=== PATIENT | female | born 1965 | race Caucasian/White ===

== ENCOUNTER → 2017-01-07 | Outpatient (CLI) | payer OTHER ==
--- NOTE | 2017-01-07 16:55 | WOMENS IMAGING REPORT ---
EXAM DESCRIPTION: 3D SCREENING MAMMO BILAT COMPLETED DATE/TIME: 01/07/2017 2:10 pm REASON FOR STUDY: ROUTINE SCREENING; Z12.31 Z12.31 ENCNTR SCREEN MAMMOGRAM FOR MALIGNANT NEOPLASM O F IDALIA COMPARISON: 12/11/2014, 12/23/2015 TECHNIQUE: Standard craniocaudal and mediolateral oblique views of each breast recorded using digita l acquisition and breast tomosynthesis. LIMITATIONS: None. FINDINGS: Findings present which are benign by mammographic criteria. No suspicious masses, calcifi cations or architectural distortion. Pertinent benign findings: Stable left parenchymal cysts. Small left breast far upper outer quadrant intramammary lymph nodes. Read with the assistance of CAD. .[facility] - R2 Cenova Version 1.3 .[facility] Imaging - R2 Cenova Version 1.3 .[facility] - R2 Cenova Version 2.4 .[facility] [place] - R2 Cenova Version 2.4 .[facility] - R2 Operating Room Orderly Version 9.2 Benign mammographic findings may include one or more of the following: Smooth masses, popcorn/rim/co arse calcifications, asymmetries, post-procedure changes, and lesions with long-standing stability. IMPRESSION: BENIGN MAMMOGRAPHIC FINDINGS. BIRADS 2 BREAST DENSITY: c. The breasts are heterogeneously dense, which may obscure small masses. BIRAD: 2 BENIGN FINDING(S) RECOMMENDATION: RECOMMENDATION: ROUTINE SCREENING Please continue yearly bilateral screening tomosynthesis in December 2017 COMMENT: The patient has been notified of the results by letter per SA requirements. Additional no tification policies are in place for contacting patient with suspicious or incomplete findings. Quality ID #[id number]: The [employer] recommends an annual screening mammogram for women aged 40 years or over. This facility utilizes a reminder system to ensure that all patients receive reminder letters, and/or direct phone calls for appointments. This includes reminders for routine scr eening mammograms, diagnostic mammograms, or other Breast Imaging Interventions when appropriate. Th is patient will be placed in the appropriate reminder system. The [employer] (ACR) has developed recommendations for screening MRI of the breast s in certain patient populations, to be used in conjunction with mammography. Breast MRI surveillanc e may be appropriate for women with more than 20% lifetime risk of developing breast cancer as deter mined by genetic testing, significant family history of the disease, or history of mantle radiation f or Hodgkins Disease. ACR Practice Guidelines 2008. DBT Technology DBT is a type of tomographic mammography. With conventional mammography, overlapping breast tissue ma y make lesions difficult to detect, even with good compression. DBT uses an x-ray tube that rotates a round the breast, taking images at different angles. These images are then combined to create thin sl ices of the breast that the radiologist can view as a 3D reconstruction. The HoloWiseryou unit can perform full-field digital mammograms (2D imaging); or DBT (3D imaging); or both, in a combination mode that quickly performs both the mammogram and the tomosynthesis scan while the breast is still compressed. RS 6045F: Fluoroscopic imaging is not utilized for breast tomosynthesis. TECHNICAL DOCUMENTATION: FINDING NUMBER: (1) ASSESSMENT: (1) JOB ID: [id number] [employer]- All Rights Reserved
== END ==
LOC: WI 13:32
PROVIDERS: ATTEND Specialist
DX: Z12.31 Encounter for screening mammogram for malignant neoplasm of breast (principal)
CPT/HCPCS: 77063; G0202; 77067

== ENCOUNTER 2018-03-17 16:41 | Observation (INO) | payer BC, OTHER ==
[2018-03-17 17:27] LABS: APPEARANCE,URINE SLIGHTLY-CLOUDY; BILIRUBIN,URINE NEGATIVE (NEGATIVE); COLOR,URINE YELLOW; GLUCOSE, URINE NEGATIVE (NEGATIVE); KETONES,URINE NEGATIVE (NEGATIVE); LEUKOCYTE ESTERASE,URINE NEGATIVE (NEGATIVE); NITRITE,URINE NEGATIVE (NEGATIVE); PROTEIN,URINE NEGATIVE (NEGATIVE); UROBILINOGEN,URINE NEGATIVE mg/dL (<2.0)
--- NOTE | 2018-03-17 19:05 | ER Document Report ---
ED Medical Screen (RME) - General Chief Complaint: Abdominal Pain Stated Complaint: ABDOMINAL PAIN Time Seen by Provider: 03/17/18 19:03 Mode of Arrival: Ambulatory Information source: Patient Notes: This is a 52-year-old female with a history of fibroid uterus, right ovarian cyst who is referred to the emergency room by the fur cutter to rule out appendicitis. Patient states she is been having right lower quadrant pain since yesterday. Patient denies any vaginal discharge or vaginal bleeding. TRAVEL OUTSIDE OF THE [place] IN LAST 30 DAYS: No - Related Data Allergies/Adverse Reactions: cephalexin [From Keflex] Allergy (Verified 03/17/18 16:47) povidone-iodine [From Betadine] Allergy (Verified 03/17/18 18:56) soap [From Betadine] Allergy (Verified 03/17/18 18:56) Past Medical History - Social History Frequency of alcohol use: Rare Drug Abuse: None Renal/ Medical History: Denies: Hx Peritoneal Dialysis Past Surgical History: Reports: Hx Gynecologic Surgery - L ovary removed, LEEP, Hx Tubal Ligation Course - Laboratory Laboratory results interpreted by me: 03/17/18 16:50 Urine Blood SMALL H Doctor's Discharge - Discharge Referrals: MATTHEW TINSLEY MD [Primary Care Provider] - Follow up as needed
[2018-03-17 19:46] LABS: ABSOLUTE EOSINOPHILS # (AUTO) 0.1 10^3/uL (0.0-0.6); ABSOLUTE LYMPHOCYTES (AUTO) 2.7 10^3/uL (0.5-4.7); ABSOLUTE MONOCYTES (AUTO) 0.5 10^3/uL (0.1-1.4); ABSOLUTE NEUT (AUTO) 7.1 10^3/uL (1.7-8.2); BASOPHILS % (AUTO) 0.4 % (0-2); EOSINOPHILS % (AUTO) 1.1 % (0-6); HEMATOCRIT 39.6 % (36.0-47.0); HEMOGLOBIN 13.5 g/dL (12.0-15.5); LYMPHOCYTES % (AUTO) 26.2 % (13-45); MEAN CORPUSCULAR HEMOGLOBIN 29.5 pg (27.0-33.4); MEAN CORPUSCULAR HGB CONC 34.1 g/dL (32.0-36.0); MEAN CORPUSCULAR VOLUME 87 fl (80-97); MONOCYTES % (AUTO) 4.5 % (3-13); PLATELET COUNT 272 10^3/uL (150-450); RED BLOOD COUNT 4.57 10^6/uL (3.72-5.28); RED CELL DISTRIBUTION WIDTH 12.7 % (11.5-14.0); SEGMENTED NEUTROPHILS % (AUTO) 67.8 % (42-78); TOTAL CELLS COUNTED % (AUTO) 100 %; WHITE BLOOD COUNT 10.5 10^3/uL (4.0-10.5)
[2018-03-17 19:53] LABS: INTERNATIONAL RATION (INR) 0.98; PROTHROMBIN TIME 13.5 SEC (11.4-15.4)
[2018-03-17 20:06] LABS: ALANINE AMINOTRANSFERASE 19 U/L (9-52); ALBUMIN 4.7 g/dL (3.5-5.0); ALKALINE PHOSPHATASE 69 U/L (38-126); ANION GAP 7 (5-19); ASPARTATE AMINO TRANSFERASE 13 U/L (14-36); BILIRUBIN,DIRECT 0.1 mg/dL (0.0-0.4); BLOOD UREA NITROGEN 11 mg/dL (7-20); CALCIUM 9.4 mg/dL (8.4-10.2); CARBON DIOXIDE 30 mmol/L (22-30); CHLORIDE 103 mmol/L (98-107); GLUCOSE 112 mg/dL (75-110); POTASSIUM 4.2 mmol/L (3.6-5.0); TOTAL PROTEIN 7.4 g/dL (6.3-8.2)
[2018-03-17] MEDS ORDERED: ACETAMINOPHEN 325 MG TABLET PO ONE (22:16)
--- NOTE | 2018-03-18 00:58 | RADIOLOGY REPORT (SQ) ---
CT ABDOMEN PELVIS WITH IV CONTRAST HISTORY: Right lower quadrant pain. COMPARISON: None. TECHNIQUE: CT scan of the abdomen and pelvis with IV contrast. This exam was performed according to our departmental dose-optimization program, which includes automated exposure control, adjustment of the mA and/or kV according to patient size and/or use of iterative reconstruction technique. FINDINGS: The lung bases are clear. No pleural or pericardial effusions. The heart size is mildly enlarged. There is a 2 cm hypodensity in the spleen which may represent a cyst or hemangioma. The liver, gallbladder, pancreas, adrenal glands, and right kidney are unremarkable. A simple cyst is seen in the left kidney. No obstructing urinary stones are seen. The uterus is retroverted but otherwise unremarkable. No small bowel obstruction. The colon is fluid-filled suggesting a diarrheal illness. The appendix is dilated measuring 1.2 cm with surrounding inflammatory stranding and lymph nodes. This is consistent with acute appendicitis. No intraperitoneal free air or free fluid is seen. There is a 3.5 x 3.4 cm round fluid attenuating structure in the mesentery which may represent a simple mesenteric cyst. No surrounding inflammatory stranding is seen. The aorta is normal caliber. There are no acute osseous findings. IMPRESSION: 1. Acute appendicitis. No evidence of rupture or abscess. 2. Fluid-filled colon suggesting a diarrheal illness.
--- NOTE | 2018-03-18 01:38 | ER Document Report ---
ED General - General Chief Complaint: Abdominal Pain Stated Complaint: ABDOMINAL PAIN Time Seen by Provider: 03/17/18 19:03 Mode of Arrival: Ambulatory Notes: Patient is a 52-year-old female without chronic medical problems, presents with 36 hours of progressively worsening right lower quadrant abdominal pain. Grecia patel describes the pain as a cramping, aching, constant pain states that has become progressively worse since onset. She was seen in her [employer]ILY [employer]'s office today, referred to the emergency department for rule out of an acute appendicitis. Patient notes that she is been nauseated but has not vomited. She has not had fever or constitutional symptoms. Nothing improves the pain. States that movement or jostling of the abdomen worsens her pain. She denies any history of similar symptoms in the past. No prior abdominal surgical history. TRAVEL OUTSIDE OF THE [place] IN LAST 30 DAYS: No - Related Data Allergies/Adverse Reactions: cephalexin [From Keflex] Allergy (Verified 03/17/18 16:47) povidone-iodine [From Betadine] Allergy (Verified 03/17/18 18:56) soap [From Betadine] Allergy (Verified 03/17/18 18:56) Past Medical History - General Information source: Patient - Social History Smoking Status: Never Smoker Frequency of alcohol use: Rare Drug Abuse: None Lives with: Spouse/Significant other Family History: Reviewed & Not Pertinent Patient has suicidal ideation: No Patient has homicidal ideation: No Renal/ Medical History: Denies: Hx Peritoneal Dialysis Past Surgical History: Reports: Hx Gynecologic Surgery - L ovary removed, LEEP, Hx Tubal Ligation Review of Systems - Review of Systems Notes: Constitutional: Negative for fever. HENT: Negative for sore throat. Eyes: Negative for visual changes. Cardiovascular: Negative for chest pain. Respiratory: Negative for shortness of breath. Gastrointestinal: Positive for abdominal pain and nausea Genitourinary: Negative for dysuria. Musculoskeletal: Negative for back pain. Skin: Negative for rash. Neurological: Negative for headaches, weakness or numbness. 10 point ROS negative except as marked above and in HPI. Physical Exam - Vital signs Vitals: Temp Pulse Resp BP Pulse Ox 97.5 F 66 19 137/81 H 100 03/18/18 01:23 03/18/18 01:23 03/18/18 01:23 03/18/18 01:23 03/18/18 01:23 Interpretation: Normal Notes: PHYSICAL EXAMINATION: GENERAL: Well-appearing, well-nourished and in no acute distress. HEAD: Atraumatic, normocephalic. EYES: Pupils equal round and reactive to light, extraocular movements intact, sclera anicteric, conjunctiva are normal. ENT: nares patent, oropharynx clear without exudates. Moist mucous membranes. NECK: Normal range of motion, supple without lymphadenopathy LUNGS: Breath sounds clear to auscultation bilaterally and equal. No wheezes rales or rhonchi. HEART: Regular rate and rhythm without murmurs ABDOMEN: Soft, focal tenderness to the right lower quadrant with rebound tenderness. No guarding. EXTREMITIES: Normal range of motion, no pitting or edema. No cyanosis. NEUROLOGICAL: No focal neurological deficits. Moves all extremities spontaneously and on command. PSYCH: Normal mood, normal affect. SKIN: Warm, Dry, normal turgor, no rashes or lesions noted. Course - Re-evaluation Re-evalutation: 03/18/18 01:36 Patient presents with exam, history consistent with acute appendicitis, confirmed on CT of the abdomen pelvis with IV and oral contrast. Labs otherwise unremarkable. No prior medical or surgical history. Patient is otherwise well in appearance. Last oral intake 8 hours ago. I have discussed with surgeon on- call Dr. Bañuelos who will evaluate the patient for surgical management. 03/18/18 03:26 Dr. Bañuelos would like to observe the patient as he does not believe the diagnosis of appendicitis is definitive at this time point. - Vital Signs Vital signs: Temp Pulse Resp BP Pulse Ox 97.5 F 66 19 137/81 H 100 03/18/18 01:23 03/18/18 01:23 03/18/18 01:23 03/18/18 01:23 03/18/18 01:23 - Laboratory Result Diagrams: 03/17/18 19:26 03/17/18 19:26 Laboratory results interpreted by me: 03/17/18 03/17/18 16:50 19:26 Glucose 112 H AST 13 L Urine Blood SMALL H - Diagnostic Test Radiology reviewed: Reports reviewed Discharge - Discharge Clinical Impression: Right lower quadrant abdominal pain Acute appendicitis Qualifiers: Acute appendicitis type: with localized peritonitis Appendicitis gangrene presence: without gangrene Appendicitis perforation presence: without perforation Appendicitis abscess presence: without abscess Qualified Code(s): K35.30 - Acute appendicitis with localized peritonitis, without perforation or gangrene Condition: Fair Disposition: ADMITTED OBSERVATION Admitting Provider: Surgicalist Unit Admitted: Surgical Floor
[2018-03-18] MEDS ORDERED: RINGERS SOLUTION,LACTATED 1,000 ML IV PRN (02:09)
--- NOTE | 2018-03-18 02:09 | PDOC H&P ---
History of Present Illness Admission Date/PCP: MATTHEW ALFARO MD Patient complains of: Abdominal pain History of Present Illness: CONNER BRADY is a 52 year old female Was sent by ground rescue to the emergency department for evaluation of abdominal pain which started approximately 24 hours ago. Patient was initially seen at Dr. Leobardo Alfaro office, [facility], where she was felt to have appendicitis. Patient states the pain came on right lower quadrant middle the night, associated with some anorexia, and constipation. She took a bottle of mag citrate and had a bowel movement green stool. She has similar episode several years ago which resolved spontaneously. She denies nausea or vomiting, history of trauma or other gastrointestinal diagnoses. She was underwent ultrasonography at Dr. Alfaro office and was found to have a right ovarian cyst. She was seen in the emergency department by Dr. Clark Juares where she was found to right lower quadrant tenderness, normal white blood cell count, CT scan with IV and oral contrast showing findings consistent with a left splenic cyst, a right lower quadrant mesenteric cyst, 1.2 cm diameter tip of the appendix, and a right ovarian adnexal density consistent with cyst. Surgery was consulted. According to the patient she feels better compared to 12 hours ago. She is hungry. 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 Chun in [facility]. Hematology: Reports: Anemia Past Surgical History Past Surgical History: History of LEEP procedure; squamous cell carcinoma removed; history of laparoscopic left oophorectomy with tubal ligation Past Surgical History: Reports: Tubal Ligation Social History Information Source: Patient Smoking Status: Never Smoker Frequency of Alcohol Use: None Hx Recreational Drug Use: No Hx Prescription Drug Abuse: No Past Social History Note: Patient works as a mental health specialist Family History Family History: Reviewed & Not Pertinent Parental Family History Reviewed: Yes Children Family History Reviewed: Yes Sibling(s) Family History Reviewed.: Yes Medication/Allergy Home Medications: B12/Levomefolate Calcium/B-6 [Foltx Tablet] 1 tab PO DAILY 03/17/18 Ergocalciferol (Vitamin D2) [Vitamin D2] 1 tab PO DAILY 03/17/18 Levothyroxine Sodium 100 mcg PO DAILY 03/17/18 Thyroid,Pork [Ephraim Thyroid] 30 mcg PO DAILY 03/17/18 Allergies/Adverse Reactions: cephalexin [From Keflex] Allergy (Verified 03/17/18 16:47) povidone-iodine [From Betadine] Allergy (Verified 03/17/18 18:56) soap [From Betadine] Allergy (Verified 03/17/18 18:56) Review of Systems Constitutional: PRESENT: as per HPI Eyes: ABSENT: visual disturbances Ears: ABSENT: hearing changes Cardiovascular: ABSENT: chest pain, dyspnea on exertion, edema, orthropnea, palpitations Respiratory: ABSENT: cough, hemoptysis Gastrointestinal: PRESENT: as per HPI Genitourinary: PRESENT: as per HPI Musculoskeletal: ABSENT: joint swelling Integumentary: ABSENT: rash, wounds Neurological: ABSENT: abnormal gait, abnormal speech, confusion, dizziness, focal weakness, syncope Endocrine: ABSENT: cold intolerance, heat intolerance, polydipsia, polyuria Hematologic/Lymphatic: ABSENT: easy bleeding, easy bruising Physical Exam Vital Signs: Temp Pulse Resp BP Pulse Ox 97.5 F 66 19 137/81 H 100 03/18/18 01:23 03/18/18 01:23 03/18/18 01:23 03/18/18 01:23 03/18/18 01:23 Intake & Output 03/16/18 03/17/18 03/18/18 06:59 06:59 06:59 Weight 84.9 kg General appearance: PRESENT: no acute distress Head exam: PRESENT: normocephalic Eye exam: PRESENT: EOMI Mouth exam: PRESENT: dry mucosa Neck exam: PRESENT: full ROM Respiratory exam: PRESENT: clear to auscultation kaz Cardiovascular exam: PRESENT: RRR Pulses: PRESENT: normal carotid pulses, normal radial pulses, normal femoral pulses GI/Abdominal exam: PRESENT: tenderness - Tender right lower quadrant with minimal guarding; abdomen is not distended no rigidity. Otherwise soft Rectal exam: PRESENT: deferred Extremities exam: PRESENT: full ROM Musculoskeletal exam: PRESENT: full ROM Neurological exam: PRESENT: alert, awake, oriented to person, oriented to place, oriented to time, oriented to situation Psychiatric exam: PRESENT: appropriate affect Results Laboratory Results: 03/17/18 19:26 03/17/18 19:26 03/17/18 03/17/18 03/17/18 16:50 19:26 19:26 WBC 10.5 RBC 4.57 Hgb 13.5 Hct 39.6 MCV 87 MCH 29.5 MCHC 34.1 RDW 12.7 Plt Count 272 Seg Neutrophils % 67.8 Lymphocytes % 26.2 Monocytes % 4.5 Eosinophils % 1.1 Basophils % 0.4 Absolute Neutrophils 7.1 Absolute Lymphocytes 2.7 Absolute Monocytes 0.5 Absolute Eosinophils 0.1 Absolute Basophils 0.0 Sodium 140.0 Potassium 4.2 Chloride 103 Carbon Dioxide 30 Anion Gap 7 BUN 11 Creatinine 0.79 Est GFR ( Amer) > 60 Est GFR (Non-Af Amer) > 60 Glucose 112 H Calcium 9.4 Total Bilirubin 1.0 AST 13 L ALT 19 Alkaline Phosphatase 69 Total Protein 7.4 Albumin 4.7 Urine Color YELLOW Urine Appearance SLIGHTLY-CLOUDY Urine pH 6.0 Ur Specific G[place] 1.020 Urine Protein NEGATIVE Urine Glucose (UA) NEGATIVE Urine Ketones NEGATIVE Urine Blood SMALL H Urine Nitrite NEGATIVE Ur Leukocyte Esterase NEGATIVE Urine WBC (Auto) 1 Urine RBC (Auto) 11 Impressions: Abdomen/Pelvis CT 03/17/18 00:00 IMPRESSION: 1. Acute appendicitis. No evidence of rupture or abscess. 2. Fluid-filled colon suggesting a diarrheal illness. Assessment & Plan - Diagnosis (1) Right lower quadrant abdominal pain Is this a current diagnosis for this admission?: Yes Plan: Impression: Right lower quadrant pain, acute; patient feeling better now compared to 12 and 18 hours ago. No fever and no leukocytosis. CT scan findings reviewed by Dr. Bañuelos. There is no evidence of peritoneal fluid, phlegmon, free air; the findings of a 1.2 cm appendix, periappendiceal inflammation, and lymphadenopathy very subtle; in addition there is a right lower quadrant mesenteric cyst, and right adnexal density consistent with ovarian process likely cyst. The patient does not need an operation at this moment Recommendations: 1. I have explained above the patient and her . She does not meet criteria for operative exploration laparoscopically or open at this moment. Suggested she be admitted for observation kept n.p.o. on no antibiotics on no pain medication and on IV fluids. 2. She will be reexamined earlier this morning by Dr. Esteban, our surgical colleague of the day. We will decide at that point whether patient warrants diagnostic laparoscopy, interval appendectomy, etc. Patient and her expressed their understanding and agreed to proceed. (2) Splenic cyst Is this a current diagnosis for this admission?: Yes (3) Mesenteric cyst Is this a current diagnosis for this admission?: Yes (4) Hypothyroidism Is this a current diagnosis for this admission?: Yes - Time Time Spent: 30 to 50 Minutes Critical Time spent with patient: 15-24 minutes Medications reviewed and adjusted accordingly: Yes Anticipated discharge: Home - Inpatient Certification Based on my medical assessment, after consideration of the patient's comorbidities, presenting symptoms, or acuity I expect that the services needed warrant INPATIENT care.: Yes I certify that my determination is in accordance with my understanding of Medicare's requirements for reasonable and necessary INPATIENT services [42 CFR 412.3e].: Yes Medical Necessity: Need for Pain Control
[2018-03-18] MEDS ORDERED: SUCCINYLCHOLINE CHLORIDE INJ 200 MG/10 ML VIAL ONE (10:14)
[2018-03-18] MEDS ORDERED: GLYCOPYRROLATE 1 MG/5 ML SYRINGE ONE (10:14)
[2018-03-18] MEDS ORDERED: NEOSTIGMINE METHYLSULFATE 10 MG/10 ML VIAL ONE (10:14)
[2018-03-18] MEDS ORDERED: ROCURONIUM BROMIDE INJ 50 MG/5 ML VIAL IV ONE (10:14)
[2018-03-18] MEDS ORDERED: FENTANYL CITRATE INJ/PF 100 MCG/2 ML AMPUL ONE (11:10)
[2018-03-18] MEDS ORDERED: ONDANSETRON HCL INJ/PF 4 MG/2 ML SDV ONE ×2 (11:10→13:39)
[2018-03-18] MEDS ORDERED: MIDAZOLAM 2 MG/2 ML INJ ONE (11:10)
[2018-03-18] MEDS ORDERED: MORPHINE SULFATE 10 MG/ML INJ ONE (11:10)
[2018-03-18] MEDS ORDERED: ACETAMINOPHEN 1,000 MG/100 ML RTUPB IV ONE (11:10)
[2018-03-18] MEDS ORDERED: PROPOFOL INJ 200 MG/20 ML VIAL IV ONE (11:10)
[2018-03-18] MEDS ORDERED: DEXAMETHASONE SOD PHOSPHATE INJ 4 MG/1 ML VIAL ONE (11:10)
--- NOTE | 2018-03-18 11:17 | PDOC PROGRESS REPORT ---
Subjective Progress Note for:: 03/18/18 Subjective:: RLQ abdominal pain Reason For Visit: ACUTE APPENDICTIS Physical Exam Vital Signs: Temp Pulse Resp BP Pulse Ox 98.0 F 70 22 H 128/74 H 96 03/18/18 08:31 03/18/18 08:31 03/18/18 08:31 03/18/18 08:31 03/18/18 08:31 Intake & Output 03/17/18 03/18/18 03/19/18 06:59 06:59 06:59 Intake Total 0 Balance 0 Weight 86.3 kg General appearance: PRESENT: no acute distress Head exam: PRESENT: atraumatic Eye exam: PRESENT: EOMI Mouth exam: PRESENT: moist, neck supple Respiratory exam: PRESENT: clear to auscultation kaz Cardiovascular exam: PRESENT: RRR GI/Abdominal exam: PRESENT: rebound - right lower quadrant with grimacing and guarding, rigid Rectal exam: PRESENT: deferred Extremities exam: PRESENT: full ROM Musculoskeletal exam: PRESENT: full ROM Neurological exam: PRESENT: oriented to person, oriented to place Skin exam: PRESENT: normal color, warm Results Laboratory Results: 03/17/18 19:26 03/17/18 19:26 03/17/18 03/17/18 03/17/18 16:50 19:26 19:26 WBC 10.5 RBC 4.57 Hgb 13.5 Hct 39.6 MCV 87 MCH 29.5 MCHC 34.1 RDW 12.7 Plt Count 272 Seg Neutrophils % 67.8 Lymphocytes % 26.2 Monocytes % 4.5 Eosinophils % 1.1 Basophils % 0.4 Absolute Neutrophils 7.1 Absolute Lymphocytes 2.7 Absolute Monocytes 0.5 Absolute Eosinophils 0.1 Absolute Basophils 0.0 Sodium 140.0 Potassium 4.2 Chloride 103 Carbon Dioxide 30 Anion Gap 7 BUN 11 Creatinine 0.79 Est GFR ( Amer) > 60 Est GFR (Non-Af Amer) > 60 Glucose 112 H Calcium 9.4 Total Bilirubin 1.0 AST 13 L ALT 19 Alkaline Phosphatase 69 Total Protein 7.4 Albumin 4.7 Urine Color YELLOW Urine Appearance SLIGHTLY-CLOUDY Urine pH 6.0 Ur Specific [place] 1.020 Urine Protein NEGATIVE Urine Glucose (UA) NEGATIVE Urine Ketones NEGATIVE Urine Blood SMALL H Urine Nitrite NEGATIVE Ur Leukocyte Esterase NEGATIVE Urine WBC (Auto) 1 Urine RBC (Auto) 11 Impressions: Abdomen/Pelvis CT 03/17/18 00:00 IMPRESSION: 1. Acute appendicitis. No evidence of rupture or abscess. 2. Fluid-filled colon suggesting a diarrheal illness. Assessment & Plan - Diagnosis (1) Acute appendicitis Qualifiers: Acute appendicitis type: with localized peritonitis Appendicitis gangrene presence: without gangrene Appendicitis perforation presence: without perforation Appendicitis abscess presence: without abscess Qualified Code(s): K35.30 - Acute appendicitis with localized peritonitis, without perforation or gangrene Is this a current diagnosis for this admission?: Yes - Plan Summary Plan Summary: A/ RLQ abdominal pain CT scan A/P significant for acute appendicitis, no perforation Blood worj WNL P/ IVF Flagyl 500 mg IV q8 Rocefin 1 gr q 12 Plan laparoscopic appendectomy possible open this morning. Procedure, risks, benefits, complications discussed with the patient, her questions were answered, and she has decided to proceed.
[2018-03-18] MEDS ORDERED: BUPIVACAINE HCL 0.5%-EPI 1:200000 INJ/PF 30 ML VIAL ONE (11:18)
[2018-03-18] MEDS ORDERED: ONDANSETRON HCL INJ/PF 4 MG/2 ML SDV IV ONE (11:30)
[2018-03-18] MEDS ORDERED: CEFTRIAXONE 1 GM/D5W RTU 1 GM/50 ML RTUPB IV SCH (12:00)
[2018-03-18] MEDS ORDERED: MORPHINE SULFATE 10 MG/ML INJ IV PRN ×2 (13:04→13:10)
[2018-03-18] MEDS ORDERED: PROMETHAZINE HCL INJ 25 MG/1 ML VIAL IV PRN ×2 (13:04)
[2018-03-18] MEDS ORDERED: FENTANYL CITRATE INJ/PF 100 MCG/2 ML AMPUL IV PRN ×3 (13:04)
[2018-03-18] MEDS ORDERED: DIPHENHYDRAMINE HCL 50 MG/ML VIAL IV PRN (13:04)
[2018-03-18] MEDS ORDERED: MEPERIDINE HCL/PF INJ 25 MG/1 ML DISP.SYRIN IV PRN (13:04)
--- NOTE | 2018-03-18 13:09 | Operative Report ---
Nonrecallable Operative Report DATE OF SURGERY: 03/18/18 PREOPERATIVE DIAGNOSIS: acute appendicitis POSTOPERATIVE DIAGNOSIS: acute appendicitis OPERATION: laparoscopic appendectomy SURGEON: RUBY CONTRERAS ANESTHESIA: GA - plus 30 mL 0.5% marcaine with epinephrine TISSUE REMOVED OR ALTERED: appendix COMPLICATIONS: none ESTIMATED BLOOD LOSS: 5 mL INTRAOPERATIVE FINDINGS: inflamed appendix without features of perforation or abscess or gangrene PROCEDURE: see dictation
[2018-03-18] MEDS ORDERED: ONDANSETRON HCL INJ/PF 4 MG/2 ML SDV IV PRN (13:10)
[2018-03-18] MEDS ORDERED: METRONIDAZOLE 500 MG/NS RTU 500 MG/100 ML RTUPB IV SCH (14:00)
[2018-03-18 14:01] LABS: ANION GAP 8 (5-19); BLOOD UREA NITROGEN 8 mg/dL (7-20); CALCIUM 8.8 mg/dL (8.4-10.2); CARBON DIOXIDE 24 mmol/L (22-30); CHLORIDE 108 mmol/L (98-107); GLUCOSE 143 mg/dL (75-110); POTASSIUM 4.5 mmol/L (3.6-5.0); SODIUM 139.9 mmol/L (137-145)
[2018-03-18] MEDS: LEVOFLOXACIN 500 MG/D5W RTU 500 MG/100 ML RTUPB IV SCH (14:31)
[2018-03-18] MEDS: FAMOTIDINE INJ/PF 20 MG/2 ML SDV IV SCH ×2 (14:34→22:38)
[2018-03-18] MEDS ORDERED: METOCLOPRAMIDE HCL INJ/PF 10 MG/2 ML SDV IV ONE (17:15)
[2018-03-18] MEDS ORDERED: PROCHLORPERAZINE EDISYLATE INJ 10 MG/2 ML VIAL IM ONE (17:15)
[2018-03-18] MEDS: METRONIDAZOLE 500 MG/NS RTU 500 MG/100 ML RTUPB IV SCH (17:26)
[2018-03-18] MEDS ORDERED: PROCHLORPERAZINE EDISYLATE INJ 10 MG/2 ML VIAL ONE (18:04)
[2018-03-18] MEDS ORDERED: NORMAL SALINE 1000 ML 1,000 ML IV PRN (18:05)
[2018-03-18] MEDS ORDERED: KETOROLAC TROMETHAMINE INJ/PF 30 MG/1 ML SDV IV PRN (18:05)
[2018-03-18] MEDS ORDERED: PROCHLORPERAZINE EDISYLATE INJ 10 MG/2 ML VIAL IM PRN (18:08)
--- NOTE | 2018-03-18 18:34 | EKG REPORT ---
SEVERITY:- ABNORMAL ECG - SINUS RHYTHM BORDERLINE T ABNORMALITIES, DIFFUSE LEADS : Confirmed by: Farhad Talley 18-Mar-2018 18:33:57
[2018-03-18] MEDS: ACETAMINOPHEN 1,000 MG/100 ML RTUPB IV SCH (18:35)
--- NOTE | 2018-03-18 23:47 | OPERATIVE REPORT E ---
Operative Report NAME: CONNER BRADY : 1965 AGE: 52Y DATE OF SURGERY: 03/18/2018 ROOM: 413 PREOPERATIVE DIAGNOSIS: ACUTE APPENDICITIS, NON-PERFORATED, NON-COMPLICATED. POSTOPERATIVE DIAGNOSIS: ACUTE APPENDICITIS, NON-PERFORATED, NON-COMPLICATED. OPERATION: LAPAROSCOPIC APPENDECTOMY. SURGEON: RUBY CONTRERAS M.D. FEED WEIGHER: None. ESTIMATED BLOOD LOSS: Less than 5 mL. COMPLICATIONS: None. ANESTHESIA: General plus 30 mL of 0.5% Marcaine with epinephrine. FLUIDS: 900 URINE OUTPUT: Monitored. INDICATION/FINDINGS: This is a healthy 52-year-old female who presented to the emergency room with right lower quadrant pain for 24 hours. She underwent a CAT scan of the abdomen and pelvis revealing an acute appendicitis and blood work within normal limits. The patient was then scheduled to undergo laparoscopic appendectomy with possible open. The procedure, risks, benefits, and complications were explained to the patient. She understands all of the above and she decided to proceed. PROCEDURE: The patient was taken to the operating room. She was placed in supine position. General anesthesia was established via endotracheal intubation. The abdomen was prepped and draped in usual fashion. Incision was made just above the umbilicus. The skin was tented with towel clips and a 5 mm port was inserted into the peritoneal cavity. CO2 pneumoperitoneum was established. Under direct visualization a 5 mm port was inserted into the right upper quadrant, and the 5 mm port at the umbilicus was removed and replaced with a 12 mm port. The 12 mm port was inserted into the left lower quadrant of the abdomen. The patient was placed in Trendelenburg position with the right side elevated. The appendix was identified anteriorly at the end of the anterior taenia. The appendix was then stretched upward to expose the mesoappendix, which was divided with LigaSure at the level of the base of the appendix. The appendix was then stapled off the cecum with a laparoscopic stapler and it was extracted from the abdominal cavity with an Endobag. CO2 pneumoperitoneum was then re-established. The cavity was inspected. The staple line was found to be intact. Under direct visualization using a fascial closure device, the umbilical fascial defect was closed with 0 Vicryl suture. The suture was left untied. All instruments and ports were removed. The CO2 pneumoperitoneum was released. The fascial defect at the umbilicus was closed with previously placed 0 Vicryl suture. All skin incisions were closed with 4-0 Vicryl running subcuticular suture with Dermabond. The patient tolerated the procedure well, was extubated, and transferred to the recovery room in satisfactory condition. DICTATING PHYSICIAN: RUBY CONTRERAS M.D. [id number] PHY#: [id number] ID: [id number] JOB#: [id number] ACCT: [id number] cc:RUBY CONTRERAS M.D. > MTDD
[2018-03-19] MEDS: ACETAMINOPHEN 1,000 MG/100 ML RTUPB IV SCH ×3 (00:11→13:06)
[2018-03-19] MEDS: METRONIDAZOLE 500 MG/NS RTU 500 MG/100 ML RTUPB IV SCH ×3 (00:11→13:06)
[2018-03-19] MEDS: ACETAMINOPHEN 325 MG TABLET PO PRN ×2 (01:50→07:45)
--- NOTE | 2018-03-19 06:22 | DISCHARGE SUMMARY E ---
Discharge Summary NAME: CONNER BRADY : 1965 AGE: 52Y ADMITTED: 03/18/2018 DISCHARGED: 03/19/2018 FINAL DIAGNOSIS: Acute appendicitis. PROCEDURE: On 03/18, the patient underwent laparoscopic appendectomy. COMPLICATIONS: None. HOSPITAL COURSE: A healthy 52-year-old female who presented to the emergency room complaining of right lower quadrant pain for 24 hours prior to admission. A CAT of her abdomen and pelvis was done, revealing acute appendicitis. She had normal blood work. The patient was taken to surgery on 03/18 for laparoscopic appendectomy. She was then transferred to the floor in acceptable condition. Her diet was advanced to regular, but not tolerated due to severe postoperative nausea and vomiting. Her discharge to home was postponed, she was placed on an NPO status, and started on Compazine and Reglan. Her symptoms eventually improved overnight. On the following day, she was able to tolerated regular diet without any issues, her vital signs were within the normal limits, and her physical exam demonstrated a soft abdomen with all incisions clean, dry, and intact. The patient was then discharged to home on 03/19/2018. DISCHARGE INSTRUCTIONS: She was given a followup appointment in the Surgical [facility] in 2 weeks with NIA Wells. She was given Ultram 50 mg po every 6 hours as needed for pain x 2 days, followed by Tylenol and Aleve for pain afterwards. Shower only is allowed for about 2 weeks, afterwards the patient can bathe. Resume all activities without limitations, regular diet, and home medications. No wound care needed DICTATING PHYSICIAN: RUBY CONTRERAS M.D. [id number] PHY#: [id number] ID: [id number] JOB#: [id number] ACCT: [id number] cc:Saul ORTIZ M.D. > MTDD
[2018-03-19] MEDS: FAMOTIDINE INJ/PF 20 MG/2 ML SDV IV SCH (09:05)
[2018-03-19] MEDS ORDERED: LEVOFLOXACIN 500 MG/D5W RTU 500 MG/100 ML RTUPB IV SCH (10:00)
--- NOTE | 2018-03-19 13:02 | PDOC PROGRESS REPORT ---
Subjective Progress Note for:: 03/19/18 Subjective:: comfortable, emesis and nausea resolved Reason For Visit: ACUTE APPENDICITIS Physical Exam Vital Signs: Temp Pulse Resp BP Pulse Ox 98.2 F 59 L 16 138/71 H 99 03/19/18 08:24 03/19/18 08:24 03/19/18 08:24 03/19/18 08:24 03/19/18 08:24 Intake & Output 03/18/18 03/19/18 03/20/18 06:59 06:59 06:59 Intake Total 0 3750 100 Output Total 5 Balance 0 3745 100 Weight 86.3 kg 87.5 kg General appearance: PRESENT: no acute distress Respiratory exam: PRESENT: clear to auscultation kaz Cardiovascular exam: PRESENT: RRR GI/Abdominal exam: PRESENT: normal bowel sounds, soft, other - incisions C/D/I Results Laboratory Results: 03/17/18 19:26 03/18/18 13:28 03/18/18 13:28 Sodium 139.9 Potassium 4.5 Chloride 108 H Carbon Dioxide 24 Anion Gap 8 BUN 8 Creatinine 0.68 Est GFR ( Amer) > 60 Est GFR (Non-Af Amer) > 60 Glucose 143 H Calcium 8.8 Impressions: Abdomen/Pelvis CT 03/17/18 00:00 IMPRESSION: 1. Acute appendicitis. No evidence of rupture or abscess. 2. Fluid-filled colon suggesting a diarrheal illness. Assessment & Plan - Diagnosis (1) Acute appendicitis Qualifiers: Acute appendicitis type: with localized peritonitis Appendicitis gangrene presence: without gangrene Appendicitis perforation presence: without perforation Appendicitis abscess presence: without abscess Qualified Code(s): K35.30 - Acute appendicitis with localized peritonitis, without perforation or gangrene Is this a current diagnosis for this admission?: Yes - Plan Summary Plan Summary: A/ POD#1 after laparoscopic appendectomy VSS, AF postoperative emesis and vomiting resolved patient is tolerating clear liquid diet well P/ Advance diet to regular home today discharge instructions as per yesterday's orders, no change
[2018-03-19] MEDS: LEVOFLOXACIN 500 MG/D5W RTU 500 MG/100 ML RTUPB IV SCH (13:06)
[2018-03-19 13:18] VITALS: BP 124/72
== END 2018-03-19 13:55 | disposition home or self-care (01) ==
LOC: ER 16:41 → EH 03-18 02:16 → 4N 03-18 04:18
PROVIDERS: ATTEND Surgery
PROC: 0DTJ4ZZ Resection of Appendix, Percutaneous Endoscopic Approach (ICD-10-PCS; principal; 2018-03-18 12:00)
DX: K35.80 Unspecified acute appendicitis (principal); T81.89XA Other complications of procedures, not elsewhere classified, initial encounter; R11.2 Nausea with vomiting, unspecified; Y83.6 Removal of other organ (partial) (total) as the cause of abnormal reaction of the patient, or of later complication, without mention of misadventure at the time of the procedure; N83.201 Unspecified ovarian cyst, right side; D73.4 Cyst of spleen; K66.8 Other specified disorders of peritoneum; E03.9 Hypothyroidism, unspecified; Z85.828 Personal history of other malignant neoplasm of skin; Z98.51 Tubal ligation status; Z90.721 Acquired absence of ovaries, unilateral; Z79.899 Other long term (current) drug therapy; Z98.890 Other specified postprocedural states
CPT/HCPCS: 99284; 36415 ×2; 85025; 85610; 80048; 80053; 81001; 88304 ×2; 74177; 93005; 93010; 44970; J2250; J3490 ×3; J1100; J3010; J2765; J2270; J0780; J0330; J2405; J7030; J7120; J2704; S0028 ×2; J0131 ×2; 840